=== PATIENT | male | born 1950 | race Caucasian/White ===

== ENCOUNTER 2021-06-26 09:59 | Outpatient (CLI) | payer MEDICARE, OTHER, SELFPAY ==
--- NOTE | ~2021-06-26 | US_ITS ---
EXAMINATION: US renal BI, US retroperitoneal duplex ltd EXAM DATE: 06/26/2021 11:08 (accession [id number]), 06/26/2021 11:09 (accession [id number]) INDICATION: I10 - Essential (primary) hypertension. TECHNIQUE: Multiple grayscale and Doppler images of the kidneys and renal arteries were obtained (by a technologist who performed the scan) and subsequently reviewed. There is no prior study for compar john. FINDINGS: Right kidney: There is normal contour and echogenicity. It measures 9.3 x 4.3 x 5.0 centimeters. Th ere are no focal renal lesions identified. There is no hydronephrosis. Left kidney: There is normal contour and echogenicity. It measures 10.6 x 5.1 x 5.5 centimeters. Th ere are no focal renal lesions identified. There is no hydronephrosis. Bladder unremarkable. The aorta peak systolic velocity is 67 cm/s. Renal arteries interrogated in several segments from origin to hilum. RIGHT RENAL ARTERY Proximal segment (origin): 89 cm/s. Middle segment: 84 cm/s. Distal segment (hilum): 99 cm/s. LEFT RENAL ARTERY Proximal segment (origin): 130 cm/s. Middle segment: 121 cm/s. Distal segment (hilum): 104 cm/s. IMPRESSION: 1. Renal artery Doppler velocities within normal limits. 2. Sonographically normal kidneys. Reviewed, dictated and finalized at location A. IMPRESSION: 1. Renal artery Doppler velocities within normal limits. 2. Sonographically normal kidneys.
== END 2021-06-26 10:00 | disposition home or self-care (01) ==
LOC: ANHIMG 10:07
PROVIDERS: PCP Internal Medicine; Visit Provider Clinical Nurse Specialist
DX: I10 Essential (primary) hypertension (principal)
CPT/HCPCS: 76775; 93976